=== PATIENT | female | born 1935 | race Caucasian/White ===

== ENCOUNTER 2016-11-12 10:50 | Inpatient (IN) | payer OTHER ==
[~2016-11-12] VITALS: Ht 157.5 cm; Wt 54.3 kg
[2016-11-12] MEDS ORDERED: ONDANSETRON INJ 2 MG/ML 2 ML VIAL IV STA (11:15)
[2016-11-12] MEDS ORDERED: MoRPHine SULFATE 2 MG/ML CARP IV STA ×2 (11:15→13:31)
[2016-11-12 11:30] LABS: BASO % 0.2 %; BASO ABS # 0.02 K/uL (0-0.2); COMPLETE YES; HEMATOCRIT 41.9 % (37-47); IG% 0.2 %; LYMPH % 15.6 %; LYMPH ABS # 1.95 K/uL (1.2-3.4); MEAN CELL VOLUME 92.3 fL (80-100); MEAN CORPUSCULAR HEMOGLOBIN 32.4 pg (25-34); MEAN CORPUSCULAR HGB CONC 35.1 g/dl (32-36); MEAN PLATELET VOLUME 10.6 fL (7.4-10.4); MONO % 7.7 %; NEUT % 76.3 %; PLATELET COUNT 282 K/uL (130-400); RED BLOOD COUNT 4.54 M/uL (4.2-5.4); WHITE BLOOD COUNT 12.54 K/uL (4.8-10.8)
--- NOTE | 2016-11-12 11:30 | EMERGENCY ROOM VISIT NOTE ---
History First contact with patient: 11:00 Chief Complaint: ABDOMINAL PAIN Stated Complaint: CHEST PAINS-RADIATES AROUND TO BACK Nursing Triage Summary: Pt ambulates to room. Reports sudden onset mid sternal chest pain with radiation from right abd into back. Reports did not eat breakfast, felt nausous. History of Present Illness The patient is a 80 year old female who presents to the Emergency Room via private vehicle coming by daughter with complaints of "chest pains, radiates around the back". The patient states that she woke up today around 7 AM and noticed pain on the right posterior thoracic region that radiated around to her right upper quadrant and epigastric region as time passed. She states that the pain as an 8/10 and has been constant and sharp in nature. She notes it is worse with a deep breath. . She does state that she has had minor leg swelling particularly on the left that is been off and on for the past 3 weeks. She states that it is better when she lays down. She further denies any medications for the pain this morning, medicinal allergies, urinary symptoms or recent trauma or falls. She's never had this before and denies nausea, vomiting , diarrhea, history of heart troubles, shortness of breath, history of blood clots. Review of Systems A complete 10-point Review of Systems was discussed with the patient, with pertinent positives and negatives listed in the History of Present Illness. All remaining Review of Systems questions can be considered negative unless otherwise specified. Past Medical/Surgical History Medical Problems: (1) Dyslipidemia (2) HTN (hypertension) (3) Osteoporosis Surgical Problems: (1) History of hysterectomy Family History Heart disease, high blood pressure, cancer, seizures. Social History Smoking Status: Never Smoker Social History: Patient feels safe at home, she denies alcohol and tobacco use. Current/Historical Medications Scheduled Alendronate Sodium (Fosamax), 70 MG PO WK Amlodipine (Norvasc), 5 MG PO DAILY Aspirin (Aspirin Ec), 81 MG PO DAILY Atenolol (Tenormin), 50 MG PO DAILY Atorvastatin (Lipitor), 10 MG PO DAILY Calcium Carbonate-Vitamin D (Calcium + D), 1 TAB PO BID Hydrochlorothiazide (Hctz), 12.5 MG PO DAILY Potassium Ext Rel (Klor-Con), 20 MEQ PO BID Allergies Coded Allergies: No Known Allergies (Unverified , 11/12/16) Physical Exam Vital Signs Date Time Temp Pulse Resp B/P Pulse Ox O2 Delivery O2 Flow Rate FiO2 11/12/16 15:08 76 18 140/60 92 Room Air 11/12/16 13:34 76 18 149/70 92 Room Air 11/12/16 12:43 73 11/12/16 12:28 72 16 120/57 94 11/12/16 11:20 Room Air 11/12/16 10:52 36.7 79 18 155/82 95 Room Air Physical Exam VITAL SIGNS - Vital signs and nursing notes were reviewed. Patient is afebrile , she is hypertensive at 155/82, she is not tachycardic and is saturating well on room air 95%. GENERAL -80-year-old female appearing her stated age who is in no acute distress. Communicates well with provider and answers questions appropriately. SKIN - Without rashes. No petechial rashes. HEAD - NC/AT. EYES - Sclera anicteric. Palpebral conjunctiva pink and moist with no injection noted. EARS - No deformities of external structures noted on gross examination bilaterally. NOSE - Midline and without cyanosis. No epistaxis or purulent drainage noted. MOUTH/OROPHARYNX - Without perioral cyanosis. NECK - Neck with FROM. LUNGS - Chest wall symmetric without accessory muscle use, intercostals retractions, or central cyanosis. Normal vesicular breath sounds CTA B/L. No wheezes, rales, or rhonchi appreciated. CARDIAC - RRR with S1/S2. No murmur, rubs, or gallops appreciated. ABDOMEN - Abdominal contour without pulsations or visible masses. BS normoactive all four quadrants. There is tenderness to palpation in the right upper quadrant. No palpable masses, hepatosplenomegaly, or ascites noted. EXTREMITIES - No clubbing or peripheral cyanosis. No pretibial edema present. +5 /5 strength noted in UE/LE bilaterally. NEUROLOGIC - Cranial nerves II through XII grossly intact. PSYCH - A&Ox3 and cooperates fully with examiner. Pt is very pleasant and interacts well with examiner. Medical Decision & Procedures ER Provider Diagnostic Interpretation: ULTRASOUND RIGHT UPPER QUADRANT ABDOMEN CLINICAL HISTORY: Right upper quadrant abdominal pain. COMPARISON STUDY: No priors. TECHNIQUE: Real-time, grayscale, and color flow sonography of the right upper quadrant of the abdomen was performed. Images are reviewed in the transverse and longitudinal planes. FINDINGS: Liver: The liver is normal in size and echotexture. There is no intrahepatic biliary ductal dilatation. The main portal vein is patent. Gallbladder: The gallbladder is normal in appearance. No gallstones are identified. There is no gallbladder wall thickening or pericholecystic fluid. A sonographic Ortiz's sign is reportedly absent. The common bile duct measures up to 0.5 cm in diameter. Pancreas: Visualized portions of the pancreatic head and body are normal in appearance. The splenic vein is patent. Right kidney: Survey images of the right kidney demonstrate normal size and echotexture. There is no hydronephrosis. Ascites: None. IMPRESSION: No acute sonographic abnormality is identified in the right upper quadrant. No gallstones are seen. Electronically signed by: Cristobal Galo M.D. 11/12/2016 12:13 PM Dictated Date/Time: 11/12/2016 12:12 PM CHEST ONE VIEW PORTABLE HISTORY: RUQ abdominal pain, epigastric pain radiating to back COMPARISON: None. FINDINGS: There is a 1.5 cm calcified granuloma within the left lower lobe. Mild bibasilar interstitial thickening which is likely chronic. The upper lung zones are clear. The heart is mildly enlarged. No pleural effusions. No pneumothorax. IMPRESSION: 1. Mild cardiomegaly. 2. Mild bibasilar interstitial thickening which is likely chronic. Electronically signed by: Virgil Bardales M.D. 11/12/2016 11:46 AM Dictated Date/Time: 11/12/2016 11:44 AM ULTRASOUND LEFT LOWER EXTREMITY VENOUS CLINICAL HISTORY: Left leg swelling. COMPARISON STUDY: No priors. TECHNIQUE: Real-time, grayscale, and color Doppler sonography of the deep veins of the left lower extremity was performed from the inguinal crease to the calf. Compression and augmentation were utilized. FINDINGS: There is no sonographic evidence of deep venous thrombosis identified in the left lower extremity. The common femoral, superficial femoral, and popliteal veins are patent and normally compressible. The greater saphenous vein and the profunda femoris vein at the junction with the common femoral vein are clear. The visualized calf veins are patent. IMPRESSION: There is no sonographic evidence of deep venous thrombosis identified in the left lower extremity. Electronically signed by: Cristobal Galo M.D. 11/12/2016 12:11 PM Dictated Date/Time: 11/12/2016 12:[address] SCAN OF THE ABDOMEN AND PELVIS WITHOUT IV CONTRAST CLINICAL HISTORY: Right upper quadrant abdominal pain. COMPARISON STUDY: Abdominal ultrasound dated 11/12/2016. TECHNIQUE: CT scan of the abdomen and pelvis is performed from the lung bases to the proximal femora. Images are reviewed in the axial, sagittal, and coronal planes. IV contrast was not administered for this examination as per the referring clinician. Note that the examination was performed in suboptimal fashion without oral and IV contrast. Automated dose control exposure was utilized. CT DOSE: 349.61 mGy.cm FINDINGS: Lung bases: The heart is mildly enlarged and without pericardial effusion. The coronary arteries are densely calcified. A small to moderate hiatal hernia is noted. There is a trace right pleural effusion. No airspace consolidation is seen typical for pneumonia. A large calcified granuloma is present at the left lung base. Liver: The unenhanced liver is normal in size, contour, and attenuation. There is no intrahepatic biliary ductal dilatation. Gallbladder: Unremarkable. Spleen: Normal in size and attenuation. There are calcified splenic granulomas. Pancreas: The unenhanced pancreas is moderately atrophic and grossly unremarkable. Adrenal glands: Unremarkable. Kidneys: The unenhanced kidneys demonstrate cortical atrophy and are without hydronephrosis. There are no renal calculi identified. There is no evidence of contour deforming renal mass lesion. Abdominal vasculature: The abdominal aorta is normal in course and caliber noting advanced atherosclerotic calcification. Bowel: The small bowel and colon are normal in course and caliber. There is mild/moderate sigmoid diverticulosis without CT evidence of acute diverticulitis. The appendix is well-visualized and normal. Peritoneum: There is no intraperitoneal free air or abdominal ascites. Lymphadenopathy: None. Pelvic viscera: The bladder is normal as visualized. The uterus is surgically absent. No adnexal lesion is seen. Numerous phleboliths are noted in the pelvis. Skeletal structures: The skeletal structures are osteopenic. There is mild lumbosacral spondylosis. No lytic or blastic lesions are seen. IMPRESSION: 1. Suboptimal examination without oral and IV contrast. 2. There are no acute infectious or inflammatory findings in the abdomen or pelvis. 3. Trace right pleural effusion. 4. Mild to moderate sigmoid diverticulosis without CT evidence of acute diverticulitis. 5. Cardiomegaly and hiatal hernia. 6. Additional changes as above. Electronically signed by: Cristobal Galo M.D. 11/12/2016 1:20 PM Dictated Date/Time: 11/12/2016 1:11 PM CHEST CTA for PULMONARY ARTERIES CT DOSE: 173.23 mGy.cm HISTORY: Atypical chest pain that radiates into back. TECHNIQUE: Multiaxial CT images of the chest were performed following the intravenous administration of contrast to evaluate the pulmonary arteries. Maximal intensity projection images were also obtained. COMPARISON STUDY: Chest 11/12/2016. FINDINGS: The heart is normal in size. Trace right pleural effusion. Moderate hiatus hernia. No evidence for an aortic dissection. No mediastinal or hilar lymphadenopathy. No fractures within the visualized osseous structures. No pneumothorax. Linear scarlike densities at the lung apices. The central airways are patent. A 1.5 cm calcified granuloma within the left lower lobe. Bibasilar linear densities favor subsegmental atelectasis are scarring. 1 cm faint irregular groundglass density within the right upper lobe on image 213. There is a single filling defects seen within a subsegmental branch of the right middle lobe consistent with a pulmonary embolus. There is an associated wedge-shaped groundglass airspace opacity within the lateral segment of the right middle lobe. This is consistent with a pulmonary infarct. IMPRESSION: 1. A subsegmental pulmonary embolus within the right middle lobe with an associated pulmonary infarct. 2. Trace right pleural effusion. 3. Moderate hiatus hernia. 4. A 1 cm faint irregular groundglass density within the right upper lobe. This favors a small focus of inflammatory/infectious change. However, six-month to one year chest CT follow-up is recommended to the less likely possibility of a low-grade pulmonary neoplasm. Electronically signed by: Virgil Bardales M.D. 11/12/2016 2:50 PM Dictated Date/Time: 11/12/2016 2:31 PM Laboratory Results 11/12/16 11:10 Red Blood Count 4.54, Mean Corpuscular Volume 92.3, Mean Corpuscular Hemoglobin 32.4, Mean Corpuscular Hemoglobin Concent 35.1, Mean Platelet Volume 10.6, Neutrophils (%) (Auto) 76.3, Lymphocytes (%) (Auto) 15.6, Monocytes (%) (Auto) 7.7, Eosinophils (%) (Auto) 0.0, Basophils (%) (Auto) 0.2, Neutrophils # (Auto) 9.58, Lymphocytes # (Auto) 1.95, Monocytes # (Auto) 0.97, Eosinophils # (Auto) 0.00, Basophils # (Auto) 0.02 11/12/16 11:10 Test 11/12/16 11:00 11/12/16 11:10 11/12/16 11:26 Urine Color YELLOW Urine Appearance CLEAR (CLEAR) Urine pH 7.5 (4.5-7.5) Urine Specific [place] 1.015 (1.000-1.030) Urine Protein NEG (NEG) Urine Glucose (UA) NEG (NEG) Urine Ketones NEG (NEG) Urine Occult Blood NEG (NEG) Urine Nitrite NEG (NEG) Urine Bilirubin NEG (NEG) Urine Urobilinogen NEG (NEG) Urine Leukocyte Esterase NEG (NEG) White Blood Count 12.54 K/uL (4.8-10.8) Red Blood Count 4.54 M/uL (4.2-5.4) Hemoglobin 14.7 g/dL (12.0-16.0) Hematocrit 41.9 % (37-47) Mean Corpuscular Volume 92.3 fL (80-100) Mean Corpuscular Hemoglobin 32.4 pg (25-34) Mean Corpuscular Hemoglobin Concent 35.1 g/dl (32-36) Platelet Count 282 K/uL (130-400) Mean Platelet Volume 10.6 fL (7.4-10.4) Neutrophils (%) (Auto) 76.3 % Lymphocytes (%) (Auto) 15.6 % Monocytes (%) (Auto) 7.7 % Eosinophils (%) (Auto) 0.0 % Basophils (%) (Auto) 0.2 % Neutrophils # (Auto) 9.58 K/uL (1.4-6.5) Lymphocytes # (Auto) 1.95 K/uL (1.2-3.4) Monocytes # (Auto) 0.97 K/uL (0.11-0.59) Eosinophils # (Auto) 0.00 K/uL (0-0.5) Basophils # (Auto) 0.02 K/uL (0-0.2) RDW Standard Deviation 43.4 fL (36.4-46.3) RDW Coefficient of Variation 12.9 % (11.5-14.5) Immature Granulocyte % (Auto) 0.2 % Immature Granulocyte # (Auto) 0.02 K/uL (0.00-0.02) Prothrombin Time 11.2 SECONDS (9.0-12.0) Prothromb Time International Ratio 1.0 (0.9-1.1) Anion Gap 10.0 mmol/L (3-11) Est Creatinine Clear Calc Drug Dose 46.1 ml/min Estimated GFR () 84.5 Estimated GFR (Non- 72.9 BUN/Creatinine Ratio 12.2 (10-20) Calcium Level 9.8 mg/dl (8.5-10.1) Total Bilirubin 1.2 mg/dl (0.2-1) Aspartate Amino Transf (AST/SGOT) 18 U/L (15-37) Alanine Aminotransferase (ALT/SGPT) 23 U/L (12-78) Alkaline Phosphatase 85 U/L (45-117) Total Creatine Kinase 100 U/L (26-192) Creatine Kinase MB 1.2 ng/ml (0.5-3.6) Creatine Kinase MB Ratio 1.2 (0-3.0) Pro-B-Type Natriuretic Peptide 207 pg/ml (0-1800) Total Protein 7.8 gm/dl (6.4-8.2) Albumin 3.9 gm/dl (3.4-5.0) Globulin 3.9 gm/dl (2.5-4.0) Albumin/Globulin Ratio 1.0 (0.9-2) Amylase Level 53 U/L (25-115) Lipase 96 U/L (73-393) Bedside Troponin I 0.000 ng/ml (0-0.045) Medications Administered Medications (Trade) Dose Ordered Sig/Ravi Route Start Time Stop Time Status Last Admin Dose Admin Morphine Sulfate (MoRPHine SULFATE INJ) 2 mg NOW STAT IV 11/12/16 11:15 11/12/16 11:19 DC 11/12/16 11:27 2 MG Ondansetron HCl (Zofran Inj) 2 mg NOW STAT IV 11/12/16 11:15 11/12/16 11:19 DC 11/12/16 11:27 2 MG Morphine Sulfate (MoRPHine SULFATE INJ) 2 mg NOW STAT IV 11/12/16 13:31 11/12/16 13:32 DC 1/26/17 13:38 2 MG Medical Decision Patient was seen and evaluated as above. After obtaining a thorough history and physical examination IV access was obtained and a CBC, CMP, amylase, lipase , [id number] troponin, BNP, coagulation studies, limited gallbladder ultrasound, stat EKG secondary to subjective and objective examination findings. Monitor was applied a continuous pulse ox was initiated. 2 mg of morphine 2 mg of Zofran were ordered secondary to pain. Chest 1 view, CPK, CK- MB, lower extremity Doppler, urine dipstick were ordered secondary to subjective and objective examination findings. Gallbladder ultrasound was unremarkable. EKG revealed normal sinus rhythm, with left ventricular hypertrophy that was questioned but was at a rate of 79 bpm without any current ectopy or ischemic changes noted. This was paired with a negative troponin. CBC revealed minimal leukocytosis at 12.5, no anemia. Coagulation studies were within normal limits. Point care troponin was 0. No evidence of heart failure. No evidence of pancreatitis. electrolytes are within normal limits no evidence of kidney or liver failure. Urine dip revealed trace blood in the urine with the urinalysis revealed negative. The chest x-ray revealed a 1.5 similar granuloma which was discussed with the patient. CT scan of the abdomen and pelvis was then ordered by my attending who also personally evaluated the patient. This did not reveal any acute findings. On reevaluation the patient appeared to be in more pain which was reproducible with palpation of the right ribs, there was concern for potential underlying pulmonary embolism although the patient saturated okay here in the emergency department and was not tachycardic. CT of the chest was obtained. Pulmonary embolism was identified. My attending ordered specific coagulation studies due to this prior to anticoagulation. I spoke with the admitting team, specifically Tami Bradshaw regarding the patient case who agreed to admit the patient for further evaluation and management as well as anticoagulation. Please refer to further documentation regarding the patient's stay. In evaluation treatment this patient following differential diagnoses were entertained: Cholecystitis, MO, rib fracture, pulmonary embolism, pneumonia, among others. The patient and her daughter were informed upon today's findings. The patient was informed upon the 1.5 cm calcified granuloma, as well as a calcification of the arteries however I was unable to speak to the patient about the recommended follow-up CT scan in 6 months to a year. At 10:50 PM I spoke with Racheal, the emergency department case finisher will be notifying the case finisher supervisor buffing and pasting to alert the patient who is been admitted of this recommendation. Impression Primary Impression: Pulmonary embolism Departure Information Dispostion Admitted as an inpatient Referrals Jean Claude Marks M.D. (PCP) Patient Instructions My [facility] Additional Instructions There is a 1.5 cm calcified granuloma within the left lower lobe. Problem Qualifiers Primary Impression: Pulmonary embolism
[2016-11-12 11:41] LABS: PROTHROMBIN TIME (PATIENT) 11.2 SECONDS (9.0-12.0)
--- NOTE | 2016-11-12 11:47 | DIAGNOSTIC IMAGING REPORT ---
CHEST ONE VIEW PORTABLE HISTORY: RUQ abdominal pain, epigastric pain radiating to back COMPARISON: None. FINDINGS: There is a 1.5 cm calcified granuloma within the left lower lobe. Mild bibasilar interstitial thickening which is likely chronic. The upper lung zones are clear. The heart is mildly enlarged. No pleural effusions. No pneumothorax. IMPRESSION: 1. Mild cardiomegaly. 2. Mild bibasilar interstitial thickening which is likely chronic. Electronically signed by: Virgil Bardales M.D. 11/12/2016 11:46 AM Dictated Date/Time: 11/12/2016 11:44 AM
[2016-11-12 11:49] LABS: BUN/CREATININE RATIO 12.2 (10-20); CALCIUM 9.8 mg/dl (8.5-10.1); CREATININE 0.77 mg/dl (0.60-1.20); POTASSIUM 3.7 mmol/L (3.5-5.1)
--- NOTE | 2016-11-12 12:04 | EMERGENCY ROOM VISIT NOTE ---
ED Visit Note First contact with patient: 11:00 I have seen and examined this patient with Hay Hamlin and generally agree with the treatment plan as discussed. Vital Signs Date Time Temp Pulse Resp B/P Pulse Ox O2 Delivery O2 Flow Rate FiO2 11/12/16 11:20 Room Air 11/12/16 10:52 36.7 79 18 155/82 95 Room Air Laboratory Results 11/12/16 11:10 Red Blood Count 4.54, Mean Corpuscular Volume 92.3, Mean Corpuscular Hemoglobin 32.4, Mean Corpuscular Hemoglobin Concent 35.1, Mean Platelet Volume 10.6, Neutrophils (%) (Auto) 76.3, Lymphocytes (%) (Auto) 15.6, Monocytes (%) (Auto) 7.7, Eosinophils (%) (Auto) 0.0, Basophils (%) (Auto) 0.2, Neutrophils # (Auto) 9.58, Lymphocytes # (Auto) 1.95, Monocytes # (Auto) 0.97, Eosinophils # (Auto) 0.00, Basophils # (Auto) 0.02 11/12/16 11:10 Test 11/12/16 11:10 11/12/16 11:26 11/12/16 11:43 White Blood Count 12.54 K/uL (4.8-10.8) Red Blood Count 4.54 M/uL (4.2-5.4) Hemoglobin 14.7 g/dL (12.0-16.0) Hematocrit 41.9 % (37-47) Mean Corpuscular Volume 92.3 fL (80-100) Mean Corpuscular Hemoglobin 32.4 pg (25-34) Mean Corpuscular Hemoglobin Concent 35.1 g/dl (32-36) Platelet Count 282 K/uL (130-400) Mean Platelet Volume 10.6 fL (7.4-10.4) Neutrophils (%) (Auto) 76.3 % Lymphocytes (%) (Auto) 15.6 % Monocytes (%) (Auto) 7.7 % Eosinophils (%) (Auto) 0.0 % Basophils (%) (Auto) 0.2 % Neutrophils # (Auto) 9.58 K/uL (1.4-6.5) Lymphocytes # (Auto) 1.95 K/uL (1.2-3.4) Monocytes # (Auto) 0.97 K/uL (0.11-0.59) Eosinophils # (Auto) 0.00 K/uL (0-0.5) Basophils # (Auto) 0.02 K/uL (0-0.2) RDW Standard Deviation 43.4 fL (36.4-46.3) RDW Coefficient of Variation 12.9 % (11.5-14.5) Immature Granulocyte % (Auto) 0.2 % Immature Granulocyte # (Auto) 0.02 K/uL (0.00-0.02) Prothrombin Time 11.2 SECONDS (9.0-12.0) Prothromb Time International Ratio 1.0 (0.9-1.1) Activated Partial Thromboplast Time 25.9 SECONDS (21.0-31.0) Partial Thromboplastin Ratio 1.0 Anion Gap 10.0 mmol/L (3-11) Est Creatinine Clear Calc Drug Dose 46.1 ml/min Estimated GFR () 84.5 Estimated GFR (Non- 72.9 BUN/Creatinine Ratio 12.2 (10-20) Calcium Level 9.8 mg/dl (8.5-10.1) Total Bilirubin 1.2 mg/dl (0.2-1) Aspartate Amino Transf (AST/SGOT) 18 U/L (15-37) Alanine Aminotransferase (ALT/SGPT) 23 U/L (12-78) Alkaline Phosphatase 85 U/L (45-117) Pro-B-Type Natriuretic Peptide 207 pg/ml (0-1800) Total Protein 7.8 gm/dl (6.4-8.2) Albumin 3.9 gm/dl (3.4-5.0) Globulin 3.9 gm/dl (2.5-4.0) Albumin/Globulin Ratio 1.0 (0.9-2) Amylase Level 53 U/L (25-115) Lipase 96 U/L (73-393) Bedside Troponin I 0.000 ng/ml (0-0.045) Creatine Kinase MB Ratio (0-3.0) Medications Administered Medications (Trade) Dose Ordered Sig/Ravi Route Start Time Stop Time Status Last Admin Dose Admin Morphine Sulfate (MoRPHine SULFATE INJ) 2 mg NOW STAT IV 11/12/16 11:15 11/12/16 11:19 DC 11/12/16 11:27 2 MG Ondansetron HCl (Zofran Inj) 2 mg NOW STAT IV 11/12/16 11:15 11/12/16 11:19 DC 11/12/16 11:27 2 MG Departure Information Referrals Jean Claude Marks M.D. (PCP) Patient Instructions My [facility] Additional Instructions There is a 1.5 cm calcified granuloma within the left lower lobe.
--- NOTE | 2016-11-12 12:13 | DIAGNOSTIC IMAGING REPORT ---
ULTRASOUND LEFT LOWER EXTREMITY VENOUS CLINICAL HISTORY: Left leg swelling. COMPARISON STUDY: No priors. TECHNIQUE: Real-time, grayscale, and color Doppler sonography of the deep veins of the left lower extremity was performed from the inguinal crease to the calf. Compression and augmentation were utilized. FINDINGS: There is no sonographic evidence of deep venous thrombosis identified in the left lower extremity. The common femoral, superficial femoral, and popliteal veins are patent and normally compressible. The greater saphenous vein and the profunda femoris vein at the junction with the common femoral vein are clear. The visualized calf veins are patent. IMPRESSION: There is no sonographic evidence of deep venous thrombosis identified in the left lower extremity. Electronically signed by: Cristobal Galo M.D. 11/12/2016 12:11 PM Dictated Date/Time: 11/12/2016 12:11 PM
--- NOTE | 2016-11-12 12:14 | DIAGNOSTIC IMAGING REPORT ---
ULTRASOUND RIGHT UPPER QUADRANT ABDOMEN CLINICAL HISTORY: Right upper quadrant abdominal pain. COMPARISON STUDY: No priors. TECHNIQUE: Real-time, grayscale, and color flow sonography of the right upper quadrant of the abdomen was performed. Images are reviewed in the transverse and longitudinal planes. FINDINGS: Liver: The liver is normal in size and echotexture. There is no intrahepatic biliary ductal dilatation. The main portal vein is patent. Gallbladder: The gallbladder is normal in appearance. No gallstones are identified. There is no gallbladder wall thickening or pericholecystic fluid. A sonographic Ortiz's sign is reportedly absent. The common bile duct measures up to 0.5 cm in diameter. Pancreas: Visualized portions of the pancreatic head and body are normal in appearance. The splenic vein is patent. Right kidney: Survey images of the right kidney demonstrate normal size and echotexture. There is no hydronephrosis. Ascites: None. IMPRESSION: No acute sonographic abnormality is identified in the right upper quadrant. No gallstones are seen. Electronically signed by: Cristobal Galo M.D. 11/12/2016 12:13 PM Dictated Date/Time: 11/12/2016 12:12 PM
[2016-11-12 12:27] LABS: CKMB/CK RATIO 1.2 (0-3.0)
[2016-11-12] MEDS ORDERED: ATEN50TA8 PO (12:54)
[2016-11-12] MEDS ORDERED: AMLO-110 PO (12:54)
[2016-11-12] MEDS ORDERED: ALEN70TA4 PO (12:54)
[2016-11-12] MEDS ORDERED: ASPI81TA28 PO (12:54)
[2016-11-12] MEDS ORDERED: POTA20TA16 PO (12:54)
[2016-11-12] MEDS ORDERED: ATOR10TA88 PO (12:54)
[2016-11-12] MEDS ORDERED: HYDR12.55 PO (12:54)
[2016-11-12 13:05] LABS: URINE APPEARANCE CLEAR (CLEAR); URINE BILIRUBIN NEG (NEG); URINE COLOR YELLOW; URINE NITRITE NEG (NEG); URINE PH 7.5 (4.5-7.5); URINE SPECIFIC GRAVITY 1.015 (1.000-1.030); UROBILINOGEN NEG (NEG); ZZUR CULT IF INDIC CLEAN CATCH NO
[2016-11-12 13:12] LABS: MANUAL MICROSCOPIC REQUIRED? NO; REVIEW REQ? NO
--- NOTE | 2016-11-12 13:22 | DIAGNOSTIC IMAGING REPORT ---
CT SCAN OF THE ABDOMEN AND PELVIS WITHOUT IV CONTRAST CLINICAL HISTORY: Right upper quadrant abdominal pain. COMPARISON STUDY: Abdominal ultrasound dated 11/12/2016. TECHNIQUE: CT scan of the abdomen and pelvis is performed from the lung bases to the proximal femora. Images are reviewed in the axial, sagittal, and coronal planes. IV contrast was not administered for this examination as per the referring clinician. Note that the examination was performed in suboptimal fashion without oral and IV contrast. Automated dose control exposure was utilized. CT DOSE: 349.61 mGy.cm FINDINGS: Lung bases: The heart is mildly enlarged and without pericardial effusion. The coronary arteries are densely calcified. A small to moderate hiatal hernia is noted. There is a trace right pleural effusion. No airspace consolidation is seen typical for pneumonia. A large calcified granuloma is present at the left lung base. Liver: The unenhanced liver is normal in size, contour, and attenuation. There is no intrahepatic biliary ductal dilatation. Gallbladder: Unremarkable. Spleen: Normal in size and attenuation. There are calcified splenic granulomas. Pancreas: The unenhanced pancreas is moderately atrophic and grossly unremarkable. Adrenal glands: Unremarkable. Kidneys: The unenhanced kidneys demonstrate cortical atrophy and are without hydronephrosis. There are no renal calculi identified. There is no evidence of contour deforming renal mass lesion. Abdominal vasculature: The abdominal aorta is normal in course and caliber noting advanced atherosclerotic calcification. Bowel: The small bowel and colon are normal in course and caliber. There is mild/moderate sigmoid diverticulosis without CT evidence of acute diverticulitis. The appendix is well-visualized and normal. Peritoneum: There is no intraperitoneal free air or abdominal ascites. Lymphadenopathy: None. Pelvic viscera: The bladder is normal as visualized. The uterus is surgically absent. No adnexal lesion is seen. Numerous phleboliths are noted in the pelvis. Skeletal structures: The skeletal structures are osteopenic. There is mild lumbosacral spondylosis. No lytic or blastic lesions are seen. IMPRESSION: 1. Suboptimal examination without oral and IV contrast. 2. There are no acute infectious or inflammatory findings in the abdomen or pelvis. 3. Trace right pleural effusion. 4. Mild to moderate sigmoid diverticulosis without CT evidence of acute diverticulitis. 5. Cardiomegaly and hiatal hernia. 6. Additional changes as above. Electronically signed by: Cristobal Galo M.D. 11/12/2016 1:20 PM Dictated Date/Time: 11/12/2016 1:11 PM
[2016-11-12] MEDS ORDERED: OPTIRAY 320 IV PRN (14:00)
--- NOTE | 2016-11-12 14:51 | DIAGNOSTIC IMAGING REPORT ---
CHEST CTA for PULMONARY ARTERIES CT DOSE: 173.23 mGy.cm HISTORY: Atypical chest pain that radiates into back. TECHNIQUE: Multiaxial CT images of the chest were performed following the intravenous administration of contrast to evaluate the pulmonary arteries. Maximal intensity projection images were also obtained. COMPARISON STUDY: Chest 11/12/2016. FINDINGS: The heart is normal in size. Trace right pleural effusion. Moderate hiatus hernia. No evidence for an aortic dissection. No mediastinal or hilar lymphadenopathy. No fractures within the visualized osseous structures. No pneumothorax. Linear scarlike densities at the lung apices. The central airways are patent. A 1.5 cm calcified granuloma within the left lower lobe. Bibasilar linear densities favor subsegmental atelectasis are scarring. 1 cm faint irregular groundglass density within the right upper lobe on image 213. There is a single filling defects seen within a subsegmental branch of the right middle lobe consistent with a pulmonary embolus. There is an associated wedge-shaped groundglass airspace opacity within the lateral segment of the right middle lobe. This is consistent with a pulmonary infarct. IMPRESSION: 1. A subsegmental pulmonary embolus within the right middle lobe with an associated pulmonary infarct. 2. Trace right pleural effusion. 3. Moderate hiatus hernia. 4. A 1 cm faint irregular groundglass density within the right upper lobe. This favors a small focus of inflammatory/infectious change. However, six-month to one year chest CT follow-up is recommended to the less likely possibility of a low-grade pulmonary neoplasm. Electronically signed by: Virgil Bardales M.D. 11/12/2016 2:50 PM Dictated Date/Time: 11/12/2016 2:31 PM
[2016-11-12] MEDS ORDERED: ONDANSETRON INJ 2 MG/ML 2 ML VIAL IV PRN (15:45)
[2016-11-12] MEDS ORDERED: ACETAMINOPHEN 325 MG TAB PO PRN (15:45)
[2016-11-12] MEDS ORDERED: CALC600T9 PO (16:03)
[2016-11-12] MEDS ORDERED: HYDR25TA4 PO (16:03)
[2016-11-12] MEDS ORDERED: HEPARIN SOD 5000 UNIT/0.5 ML CARP ONE (16:19)
[2016-11-12] MEDS ORDERED: HEPARIN 25000 UNIT/500 ML D5W ONE (16:19)
--- NOTE | 2016-11-12 16:50 | History and Physical ---
History & Physical Date & Time of Service: Nov 12, 2016 at 16:03 Chief Complaint: Chest Pains-Radiates Around To Back Primary Care Physician: Jean Claude Marks M.D. History of Present Illness Source: patient, clinic records This is an 80 year old female with PMH of HTN, HL, osteoporosis, who presented to the ED for back pain radiating to her chest. History obtained from patient and supplemented from daughter at bedside due to patient's chronic short term memory loss. Patient first noticed the pain when getting out of bed this morning. She called her daughter and was brought to the ER. Pain starts in her back in the right thoracic area with radiation to her RUQ/ right anterior lower ribs. Pain is worse with movement and deep inspiration. Morphine in ER helped temporarily. Upright position also improves the discomfort. Pain is now rated 5/ 10. Starting today patient has mild SOB at times with speaking, fatigue, and low appetite. Daughter denies ACOSTA and states she ambulated into the ER. Patient has left leg swelling which is intermittent for months as per daughter. Denies fever, chills, dizziness, URI symptoms, cough, substernal chest pain, nausea, vomiting, bowel or bladder changes, calf pain. No recent illness, surgery, travel, or immobilization. Patient lives independently and ambulates often throughout the day. Denies personal hx of VTE. Denies history of abnormal bleeding. Past Medical/Surgical History Medical Problems: (1) Dyslipidemia Status: Chronic (2) HTN (hypertension) Status: Chronic (3) Osteoporosis Status: Chronic Surgical Problems: (1) History of hysterectomy Status: Chronic Family History DVT DAUGHTER Daughter had DVT while on control pills. Social History Smoking Status: Never Smoker Alcohol Use: none Drug Use: none Housing status: lives alone Multi-Drug Resistant Organisms History of MDRO: No Allergies Coded Allergies: No Known Allergies (Unverified , 11/12/16) Home Medications Scheduled Alendronate Sodium (Fosamax), 70 MG PO WK Amlodipine (Norvasc), 5 MG PO DAILY Aspirin (Aspirin Ec), 81 MG PO DAILY Atenolol (Tenormin), 50 MG PO DAILY Atorvastatin (Lipitor), 10 MG PO DAILY Calcium Carbonate-Vitamin D (Calcium + D), 1 TAB PO BID Hydrochlorothiazide (Hctz), 12.5 MG PO DAILY Potassium Ext Rel (Klor-Con), 20 MEQ PO BID Review of Systems Ten point review of systems performed with pertinent positives and negatives noted in HPI. Physical Exam Vital Signs Date Time Temp Pulse Resp B/P Pulse Ox O2 Delivery O2 Flow Rate FiO2 11/12/16 15:08 76 18 140/60 92 Room Air 11/12/16 13:34 76 18 149/70 92 Room Air 11/12/16 12:43 73 11/12/16 12:28 72 16 120/57 94 11/12/16 11:20 Room Air 11/12/16 10:52 36.7 79 18 155/82 95 Room Air General Appearance: no apparent distress, + thin, + pertinent finding (alert pleasant elderly female, daughter Mabel at bedside) Head: normocephalic, atraumatic Eyes: normal inspection, sclerae normal ENT: normal ENT inspection, hearing grossly normal, pharynx normal Neck: supple, trachea midline Respiratory/Chest: lungs clear, normal breath sounds, no respiratory distress, no accessory muscle use Cardiovascular: regular rate, rhythm, no murmur Abdomen/GI: normal bowel sounds, non tender, soft Back: + pertinent finding (no thoracic paraspinal muscle tenderness ) Extremities/Musculoskelatal: normal inspection, no calf tenderness, + pertinent finding (trace left pretibial edema, RLE- no edema) Neurologic/Psych: alert, normal mood/affect, oriented x 3, + pertinent finding (chronic short term memory loss. grossly nonfocal. ) Skin: normal color, warm/dry Diagnostics Laboratory Results Results Past 24 Hours Test 11/12/16 11:00 11/12/16 11:10 11/12/16 11:26 11/12/16 15:00 Range/Units Urine Color YELLOW Urine Appearance CLEAR CLEAR Urine pH 7.5 4.5-7.5 Urine Specific [place] 1.015 1.000-1.030 Urine Protein NEG NEG Urine Glucose (UA) NEG NEG Urine Ketones NEG NEG Urine Occult Blood NEG NEG Urine Nitrite NEG NEG Urine Bilirubin NEG NEG Urine Urobilinogen NEG NEG Urine Leukocyte Esterase NEG NEG White Blood Count 12.54 4.8-10.8 K/uL Red Blood Count 4.54 4.2-5.4 M/uL Hemoglobin 14.7 12.0-16.0 g/dL Hematocrit 41.9 37-47 % Mean Corpuscular Volume 92.3 80-100 fL Mean Corpuscular Hemoglobin 32.4 25-34 pg Mean Corpuscular Hemoglobin Concent 35.1 32-36 g/dl Platelet Count 282 130-400 K/uL Mean Platelet Volume 10.6 7.4-10.4 fL Neutrophils (%) (Auto) 76.3 % Lymphocytes (%) (Auto) 15.6 % Monocytes (%) (Auto) 7.7 % Eosinophils (%) (Auto) 0.0 % Basophils (%) (Auto) 0.2 % Neutrophils # (Auto) 9.58 1.4-6.5 K/uL Lymphocytes # (Auto) 1.95 1.2-3.4 K/uL Monocytes # (Auto) 0.97 0.11-0.59 K/uL Eosinophils # (Auto) 0.00 0-0.5 K/uL Basophils # (Auto) 0.02 0-0.2 K/uL RDW Standard Deviation 43.4 36.4-46.3 fL RDW Coefficient of Variation 12.9 11.5-14.5 % Immature Granulocyte % (Auto) 0.2 % Immature Granulocyte # (Auto) 0.02 0.00-0.02 K/uL Prothrombin Time 11.2 9.0-12.0 SECONDS Prothromb Time International Ratio 1.0 0.9-1.1 Activated Partial Thromboplast Time 25.9 21.0-31.0 SECONDS Partial Thromboplastin Ratio 1.0 Sodium Level 137 136-145 mmol/L Potassium Level 3.7 3.5-5.1 mmol/L Chloride Level 102 98-107 mmol/L Carbon Dioxide Level 25 21-32 mmol/L Anion Gap 10.0 3-11 mmol/L Blood Urea Nitrogen 9 7-18 mg/dl Creatinine 0.77 0.60-1.20 mg/dl Est Creatinine Clear Calc Drug Dose 46.1 ml/min Estimated GFR () 84.5 Estimated GFR (Non- 72.9 BUN/Creatinine Ratio 12.2 10-20 Random Glucose 118 70-99 mg/dl Calcium Level 9.8 8.5-10.1 mg/dl Total Bilirubin 1.2 0.2-1 mg/dl Aspartate Amino Transf (AST/SGOT) 18 15-37 U/L Alanine Aminotransferase (ALT/SGPT) 23 12-78 U/L Alkaline Phosphatase 85 45-117 U/L Total Creatine Kinase 100 26-192 U/L Creatine Kinase MB 1.2 0.5-3.6 ng/ml Creatine Kinase MB Ratio 1.2 0-3.0 Pro-B-Type Natriuretic Peptide 207 0-1800 pg/ml Total Protein 7.8 6.4-8.2 gm/dl Albumin 3.9 3.4-5.0 gm/dl Globulin 3.9 2.5-4.0 gm/dl Albumin/Globulin Ratio 1.0 0.9-2 Amylase Level 53 25-115 U/L Lipase 96 73-393 U/L Bedside Troponin I 0.000 0-0.045 ng/ml Diagnostic Radiology ULTRASOUND RIGHT UPPER QUADRANT ABDOMEN IMPRESSION: No acute sonographic abnormality is identified in the right upper quadrant. No gallstones are seen. CHEST ONE VIEW PORTABLE HISTORY: RUQ abdominal pain, epigastric pain radiating to back COMPARISON: None. FINDINGS: There is a 1.5 cm calcified granuloma within the left lower lobe. Mild bibasilar interstitial thickening which is likely chronic. The upper lung zones are clear. The heart is mildly enlarged. No pleural effusions. No pneumothorax. IMPRESSION: 1. Mild cardiomegaly. 2. Mild bibasilar interstitial thickening which is likely chronic. ULTRASOUND LEFT LOWER EXTREMITY VENOUS IMPRESSION: There is no sonographic evidence of deep venous thrombosis identified in the left lower extremity. CT SCAN OF THE ABDOMEN AND PELVIS WITHOUT IV CONTRAST CLINICAL HISTORY: Right upper quadrant abdominal pain. COMPARISON STUDY: Abdominal ultrasound dated 11/12/2016. TECHNIQUE: CT scan of the abdomen and pelvis is performed from the lung bases to the proximal femora. Images are reviewed in the axial, sagittal, and coronal planes. IV contrast was not administered for this examination as per the referring clinician. Note that the examination was performed in suboptimal fashion without oral and IV contrast. Automated dose control exposure was utilized. CT DOSE: 349.61 mGy.cm FINDINGS: Lung bases: The heart is mildly enlarged and without pericardial effusion. The coronary arteries are densely calcified. A small to moderate hiatal hernia is noted. There is a trace right pleural effusion. No airspace consolidation is seen typical for pneumonia. A large calcified granuloma is present at the left lung base. Liver: The unenhanced liver is normal in size, contour, and attenuation. There is no intrahepatic biliary ductal dilatation. Gallbladder: Unremarkable. Spleen: Normal in size and attenuation. There are calcified splenic granulomas. Pancreas: The unenhanced pancreas is moderately atrophic and grossly unremarkable. Adrenal glands: Unremarkable. Kidneys: The unenhanced kidneys demonstrate cortical atrophy and are without hydronephrosis. There are no renal calculi identified. There is no evidence of contour deforming renal mass lesion. Abdominal vasculature: The abdominal aorta is normal in course and caliber noting advanced atherosclerotic calcification. Bowel: The small bowel and colon are normal in course and caliber. There is mild/moderate sigmoid diverticulosis without CT evidence of acute diverticulitis. The appendix is well-visualized and normal. Peritoneum: There is no intraperitoneal free air or abdominal ascites. Lymphadenopathy: None. Pelvic viscera: The bladder is normal as visualized. The uterus is surgically absent. No adnexal lesion is seen. Numerous phleboliths are noted in the pelvis. Skeletal structures: The skeletal structures are osteopenic. There is mild lumbosacral spondylosis. No lytic or blastic lesions are seen. IMPRESSION: 1. Suboptimal examination without oral and IV contrast. 2. There are no acute infectious or inflammatory findings in the abdomen or pelvis. 3. Trace right pleural effusion. 4. Mild to moderate sigmoid diverticulosis without CT evidence of acute diverticulitis. 5. Cardiomegaly and hiatal hernia. 6. Additional changes as above. CHEST CTA for PULMONARY ARTERIES CT DOSE: 173.23 mGy.cm HISTORY: Atypical chest pain that radiates into back. TECHNIQUE: Multiaxial CT images of the chest were performed following the intravenous administration of contrast to evaluate the pulmonary arteries. Maximal intensity projection images were also obtained. COMPARISON STUDY: Chest 11/12/2016. FINDINGS: The heart is normal in size. Trace right pleural effusion. Moderate hiatus hernia. No evidence for an aortic dissection. No mediastinal or hilar lymphadenopathy. No fractures within the visualized osseous structures. No pneumothorax. Linear scarlike densities at the lung apices. The central airways are patent. A 1.5 cm calcified granuloma within the left lower lobe. Bibasilar linear densities favor subsegmental atelectasis are scarring. 1 cm faint irregular groundglass density within the right upper lobe on image 213. There is a single filling defects seen within a subsegmental branch of the right middle lobe consistent with a pulmonary embolus. There is an associated wedge-shaped groundglass airspace opacity within the lateral segment of the right middle lobe. This is consistent with a pulmonary infarct. IMPRESSION: 1. A subsegmental pulmonary embolus within the right middle lobe with an associated pulmonary infarct. 2. Trace right pleural effusion. 3. Moderate hiatus hernia. 4. A 1 cm faint irregular groundglass density within the right upper lobe. This favors a small focus of inflammatory/infectious change. However, six-month to one year chest CT follow-up is recommended to the less likely possibility of a low-grade pulmonary neoplasm. EKG NSR, 75 bpm, LVH with repolarization abnormality Impression Assessment and Plan PULMONARY EMBOLISM Admit to telemetry 1st episode; unprovoked Hemodynamically stable; saturating low to mid 90s on RA CXR- 1.5 cm calcified granuloma LLL, bibasilar interstitial thickening- likely chronic, mild cardiomegaly CTA chest + subsegmental pulmonary embolus within the right middle lobe with an associated pulmonary infarct, trace R pleural effusion, 1 cm faint irregular ground glass density R upper lobe Ultrasound of LLE negative for DVT Hypercoagulable workup ordered by ER Start IV heparin; will need group home anticoagulation Check echo to r/o cardiac strain Supplemental O2 per protocol Percocet PRN for pain control Gentle IVF's NSS at 75 mL/hour x 1 liter LEUKOCYTOSIS WBC 12.5; no apparent infection; UA negative Check repeat CBC in am GROUND GLASS DENSITY CTA chest shows "1 cm faint irregular groundglass density within the right upper lobe. This favors a small focus of inflammatory/infectious change. However , six-month to one year chest CT follow-up is recommended to the less likely possibility of a low-grade pulmonary neoplasm. " F/u as outpatient HYPERTENSION BP is stable Continue amlodipine, atenolol Hold HCTZ to avoid dehydration DYSLIPIDEMIA Continue statin CODE STATUS Full code per my discussion with the patient. States she would not want prolonged life support. DISPOSITION Admit to telemetry Patient's daughter at bedside, Mabel Clark, who is POA, requests updates by phone ([phone]). Lives alone Follows with Dr. Marks for primary care Patient seen in collaboration with Dr. Manriquez. Please see her addendum. Dr Moran will follow the patient in AM ATTENDING NOTE: Pt seen and examined, care co ordinated with Tami Bradshaw PA-C 80 yo F admitted with sudden onset of chest pain sharp radiation to back CT chest shows :subsegmental pulmonary embolus within the right middle lobe with an associated pulmonary infarct, no hx of recent travel or confinement P/E: gen: no sign of discomfort HEENT : sclera non icteric , PERRLA/EOMI HT: regular S1/s2 lungs: CTA abdomen; soft, non tender ext : no rash or deformity , trace edema on left lower ext no calf tenderness Neuro: no focal deficit A/P : Acute PE: no prior hx no hemodynamic compromise hypercoagulable work up sent at ED IV heparin wt based protocol will need to initiate oral anticoagulation form tomorrow ordered for PO Coumadin 5 mg daily follow PT/INT will need over lap anticoagulation for 48 hrs as INR therapeutic FULL CODE VTE Prophylaxis VTE Risk Assessment Done? Y/N: Yes Risk Level: High
[2016-11-12 18:32] VITALS: BP 116/74; PULSE 74; TEMP 36.6; O2SAT 96
[2016-11-12] MEDS ORDERED: SODIUM CHLORIDE 0.9% 1000ML 1,000 ML IV SCH (19:00)
[2016-11-12 19:30] VITALS: BP 134/58; TEMP 37.1; O2SAT 93; Ht 157.5 cm; Wt 54.3 kg
[2016-11-12] MEDS: CALCIUM 600MG + VIT D 400 IU TAB PO SCH (20:23)
[2016-11-12] MEDS: POTASSIUM CHLORIDE 20 MEQ TABCR PO SCH (20:24)
[2016-11-12 23:07] LABS: PARTIAL THROMBOPLASTIN RATIO 2.1
[2016-11-12 23:23] VITALS: BP 124/57; PULSE 79; TEMP 37.3; O2SAT 91
[2016-11-13] VITALS (8 sets, daily range): BP systolic 94–155; BP diastolic 42–64; PULSE 55–77; TEMP 36.4–37.4; O2SAT 92–94
[2016-11-13 06:23] LABS: HEMATOCRIT 38.2 % (37-47); MEAN CELL VOLUME 92.3 fL (80-100); MEAN CORPUSCULAR HEMOGLOBIN 30.9 pg (25-34); MEAN CORPUSCULAR HGB CONC 33.5 g/dl (32-36); MEAN PLATELET VOLUME 10.7 fL (7.4-10.4); PLATELET COUNT 237 K/uL (130-400); RED BLOOD COUNT 4.14 M/uL (4.2-5.4); WHITE BLOOD COUNT 9.63 K/uL (4.8-10.8)
[2016-11-13 06:30] LABS: INR 1.2 (0.9-1.1)
[2016-11-13] MEDS: OXYCODONE/ACETAMINOPHEN 5-325 TAB PO PRN ×2 (06:47→13:51)
[2016-11-13 06:59] LABS: BUN/CREATININE RATIO 17.7 (10-20); CALCIUM 8.8 mg/dl (8.5-10.1); CREATININE 0.63 mg/dl (0.60-1.20); POTASSIUM 3.7 mmol/L (3.5-5.1)
[2016-11-13] MEDS: HEPARIN 25,000 UNIT/500ML D5W 500 ML IV PRN ×2 (07:02→18:55)
[2016-11-13] MEDS: CALCIUM 600MG + VIT D 400 IU TAB PO SCH ×2 (08:20→21:09)
[2016-11-13] MEDS: AMLODIPINE BESYLATE 5 MG TAB PO SCH (08:20)
[2016-11-13] MEDS: POTASSIUM CHLORIDE 20 MEQ TABCR PO SCH ×2 (08:20→21:09)
[2016-11-13] MEDS: ASPIRIN 81 MG ECTAB PO SCH (08:20)
[2016-11-13] MEDS: ATORVASTATIN 10 MG TAB PO SCH (08:21)
[2016-11-13] MEDS ORDERED: HYDROCHLOROTHIAZIDE 25 MG TAB PO SCH (09:00)
--- NOTE | 2016-11-13 12:10 | ECHOCARDIOGRAM REPORT ---
*NOTICE TO RECEIVING [employer] This information is strictly Confidential and protected under [place] law. [place] law prohibits you from making any further disclosure of this information unless further disclosure is expressly permitted by the written consent of the person to whom it pertains or is authorized by law. A general authorization for the release of medical or other information is not sufficient for this purpose. Hospital accepts no responsibility if the information is made available to any other person, INCLUDING THE PATIENT. Interpretation Summary * Name: BRITTNY SANCHEZ Study Date: 11/13/2016 07:51 AM BP: 100/42 mmHg * Patient Location: [facility]\S\N289\S\2 HR: 71 * : 1935 (M/d/yyyy) Gender: Female Height: 62 in * Age: 80 yrs Ethnicity: [place] Weight: 119 lb * Ordering Physician: Tami Bradshaw * Referring Physician: Self, Referred * Performed By: Simin Ervin RDCS * * Reason For Study: PULMONARY EMBOLISM * BSA: 1.5 m2 * History: PULMONARY EMBOLISM * The study was technically adequate. * There is no comparison study available. * -- Conclusions -- * Ejection Fraction = 60-65%. * Left ventricular systolic function is normal. * The right ventricle is normal size. * The right ventricular systolic function is normal as assessed by tricuspid annular plane systolic excursion (TAPSE) (normal >1.5 cm). * The left atrium is mildly dilated. * Grade I diastolic dysfunction, (abnormal relaxation pattern). * Aortic valve sclerosis mild, without significant aortic valvular stenosis. * There is trace mitral regurgitation. * There is mild tricuspid regurgitation. * Doppler findings do not suggest pulmonary hypertension. Procedure Details * A complete two-dimensional transthoracic echocardiogram was performed (2D, M-mode, Doppler and color flow Doppler). Left Ventricle * The left ventricle is normal in size. * There is normal left ventricular wall thickness. * Ejection Fraction = 60-65%. * Left ventricular systolic function is normal. * The left ventricular wall motion is normal. Right Ventricle * The right ventricle is normal size. * The right ventricular systolic function is normal as assessed by tricuspid annular plane systolic excursion (TAPSE) (normal >1.5 cm). Atria * The left atrium is mildly dilated. * Right atrial size is normal. * There is no evidence of atrial septal defect, but resolution does not allow assessment for a patent foramen ovale. Mitral Valve * There is mild to moderate mitral annular calcification. * There is no mitral valve stenosis. * There is trace mitral regurgitation. Tricuspid Valve * The tricuspid valve is normal. * There is no tricuspid stenosis. * There is mild tricuspid regurgitation. * Doppler findings do not suggest pulmonary hypertension. Aortic Valve * The aortic valve is trileaflet. * Aortic valve sclerosis mild, without significant aortic valvular stenosis. * Aortic stenosis is absent. * There is no significant aortic regurgitation. Pulmonic Valve * The pulmonary valve is not well seen, but the Doppler examination is normal without significant regurgitation or stenosis. Great Vessels * The aortic root and proximal ascending aorta are normal sized. Pericardium/Pleural * There is no pericardial effusion. Great Vessels * Normal inferior vena cava diameter and respiratory variation suggests normal central venous pressure. Left Ventricular Diastolic Function * Grade I diastolic dysfunction, (abnormal relaxation pattern). MMode 2D Measurements and Calculations IVSd 0.94 cm IVSs 1.4 cm LVIDd 3.5 cm LVIDs 2.6 cm LVPWd 1.1 cm LVPWs 1.5 cm IVS/LVPW 0.85 FS 27.4 % EDV(Teich) 51.7 ml ESV(Teich) 23.6 ml EF(Teich) 54.3 % EDV(cubed) 43.7 ml ESV(cubed) 16.7 ml EF(cubed) 61.7 % % IVS thick 50.5 % % LVPW thick 40.4 % LV mass(C)d 106.7 grams LV mass(C)dI 69.6 grams/m\S\2 LV mass(C)s 125.3 grams LV mass(C)sI 81.7 grams/m\S\2 SV(Teich) 28.0 ml SI(Teich) 18.3 ml/m\S\2 SV(cubed) 27.0 ml SI(cubed) 17.6 ml/m\S\2 LVAd ap4 26.9 cm\S\2 LVLd ap4 7.4 cm EDV(MOD-sp4) 78.4 ml EDV(sp4-el) 82.7 ml LVAs ap4 15.9 cm\S\2 LVLs ap4 6.3 cm ESV(MOD-sp4) 33.8 ml ESV(sp4-el) 33.9 ml EF(MOD-sp4) 56.9 % EF(sp4-el) 59.0 % LVAd ap2 22.7 cm\S\2 LVLd ap2 7.3 cm EDV(MOD-sp2) 57.7 ml EDV(sp2-el) 59.9 ml LVAs ap2 13.6 cm\S\2 LVLs ap2 6.0 cm ESV(MOD-sp2) 26.4 ml ESV(sp2-el) 26.0 ml EF(MOD-sp2) 54.4 % EF(sp2-el) 56.7 % LVLd %diff -1.80 % EDV(MOD-bp) 66.9 ml LVLs %diff -50 % ESV(MOD-bp) 29.1 ml EF(MOD-bp) 56.5 % SV(MOD-sp4) 44.6 ml SI(MOD-sp4) 29.1 ml/m\S\2 SV(MOD-sp2) 31.4 ml SI(MOD-sp2) 20.5 ml/m\S\2 SV(MOD-bp) 37.8 ml SI(MOD-bp) 24.7 ml/m\S\2 SV(sp4-el) 48.8 ml SI(sp4-el) 31.8 ml/m\S\2 SV(sp2-el) 34.0 ml SI(sp2-el) 22.1 ml/m\S\2 Doppler Measurements and Calculations MV E max april 89.0 cm/sec MV A max april 106.2 cm/sec MV E/A 0.84 MV dec time 0.29 sec Ao V2 max 152.7 cm/sec Ao max PG 9.3 mmHg Ao max PG (full) 3.4 mmHg LV V1 max PG 5.9 mmHg LV V1 max 121.9 cm/sec TR max april 269.1 cm/sec
[2016-11-13] MEDS: WARFARIN SOD 5 MG TAB PO SCH (15:42)
[2016-11-13 16:16] LABS: PARTIAL THROMBOPLASTIN RATIO 1.9
--- NOTE | 2016-11-13 17:12 | Progress Note ---
Internal Med Progress Note Date of Service: Nov 13, 2016. Provider Documentation: SUBJECTIVE: sitting on the zeb comfortably denies sob or chest pain no cough eating ok afebrile OBJECTIVE: Vital Signs-as noted below Exam: General-alert and oriented ENT-normal hearing Neck-no neck masses Lungs-cta b/l no wheezing or crackles Heart-s1 and s2 heard regular rate and rhythm no murmurs Abdomen-soft bowel sounds present non tender no distension Extremities-no erythema Neuro-alert and awake moves extremities Lab data as noted below. ASSESSMENT & PLAN: PULMONARY EMBOLISM 1st episode; unprovoked CXR- 1.5 cm calcified granuloma LLL, bibasilar interstitial thickening- likely chronic, mild cardiomegaly CTA chest + subsegmental pulmonary embolus within the right middle lobe with an associated pulmonary infarct, trace R pleural effusion, 1 cm faint irregular ground glass density R upper lobe Ultrasound of LLE negative for DVT Hypercoagulable workup ordered in ER Started IV heparin and Coumadin echo unremarkable will f/u INR GROUND GLASS DENSITY CTA chest shows "1 cm faint irregular groundglass density within the right upper lobe. This favors a small focus of inflammatory/infectious change. However , six-month to one year chest CT follow-up is recommended to the less likely possibility of a low-grade pulmonary neoplasm. " F/u as outpatient with pcp HYPERTENSION on amlodipine, atenolol Holding HCTZ to avoid dehydration will monitor DYSLIPIDEMIA on statin CODE STATUS Full code . DISPOSITION Monitor in telemetry Patient's daughter at bedside, Mabel Clark, who is POA, requests updates by phone ([phone]). Lives alone Follows with Dr. Marks for primary care To be determined Vital Signs: Date Time Temp Pulse Resp B/P Pulse Ox O2 Delivery O2 Flow Rate FiO2 11/13/16 15:03 36.7 55 16 94/52 92 Room Air 11/13/16 12:00 93 Room Air 11/13/16 11:37 36.8 63 16 144/64 93 Room Air 11/13/16 08:00 93 Room Air 11/13/16 07:27 36.6 71 16 100/42 93 Room Air 11/13/16 04:02 37.4 77 18 106/58 92 Room Air 11/13/16 04:00 Room Air 11/13/16 00:00 Room Air 11/12/16 23:23 37.3 79 20 124/57 91 Room Air 11/12/16 19:30 37.1 16 134/58 93 Room Air 11/12/16 18:32 36.6 74 16 116/74 96 Room Air 11/12/16 17:46 76 18 113/46 92 Room Air Lab Results: Results Past 24 Hours Test 11/12/16 22:32 11/13/16 05:54 11/13/16 15:40 Range/Units Activated Partial Thromboplast Time 54.6 50.6 21.0-31.0 SECONDS Partial Thromboplastin Ratio 2.1 1.9 White Blood Count 9.63 4.8-10.8 K/uL Red Blood Count 4.14 4.2-5.4 M/uL Hemoglobin 12.8 12.0-16.0 g/dL Hematocrit 38.2 37-47 % Mean Corpuscular Volume 92.3 80-100 fL Mean Corpuscular Hemoglobin 30.9 25-34 pg Mean Corpuscular Hemoglobin Concent 33.5 32-36 g/dl RDW Standard Deviation 44.1 36.4-46.3 fL RDW Coefficient of Variation 13.1 11.5-14.5 % Platelet Count 237 130-400 K/uL Mean Platelet Volume 10.7 7.4-10.4 fL Prothrombin Time 13.0 9.0-12.0 SECONDS Prothromb Time International Ratio 1.2 0.9-1.1 Sodium Level 138 136-145 mmol/L Potassium Level 3.7 3.5-5.1 mmol/L Chloride Level 104 98-107 mmol/L Carbon Dioxide Level 24 21-32 mmol/L Anion Gap 10.0 3-11 mmol/L Blood Urea Nitrogen 11 7-18 mg/dl Creatinine 0.63 0.60-1.20 mg/dl Est Creatinine Clear Calc Drug Dose 56.3 ml/min Estimated GFR () 98.2 Estimated GFR (Non- 84.7 BUN/Creatinine Ratio 17.7 10-20 Random Glucose 96 70-99 mg/dl Calcium Level 8.8 8.5-10.1 mg/dl Magnesium Level 2.0 1.8-2.4 mg/dl
[2016-11-14 03:52] VITALS: BP 117/67; PULSE 69; TEMP 36.8; O2SAT 93
[2016-11-14 07:39] VITALS: BP 110/54; PULSE 76; TEMP 37.2; O2SAT 92
[2016-11-14 08:24] LABS: INR 1.1 (0.9-1.1); PARTIAL THROMBOPLASTIN RATIO 1.7; PROTHROMBIN TIME (PATIENT) 12.3 SECONDS (9.0-12.0)
[2016-11-14] MEDS: POTASSIUM CHLORIDE 20 MEQ TABCR PO SCH ×2 (08:33→20:33)
[2016-11-14] MEDS: ASPIRIN 81 MG ECTAB PO SCH (08:34)
[2016-11-14] MEDS: AMLODIPINE BESYLATE 5 MG TAB PO SCH (08:34)
[2016-11-14] MEDS: CALCIUM 600MG + VIT D 400 IU TAB PO SCH ×2 (08:34→20:33)
[2016-11-14] MEDS: ATORVASTATIN 10 MG TAB PO SCH (08:35)
[2016-11-14] MEDS: HEPARIN 25,000 UNIT/500ML D5W 500 ML IV PRN ×2 (09:19→20:32)
[2016-11-14] MEDS ORDERED: HEPARIN IV BOLUS 2,000 UNIT in SYRINGE 0 ML IV ONE (09:30)
[2016-11-14 12:04] VITALS: BP 130/54; PULSE 67; TEMP 37; O2SAT 94
[2016-11-14] MEDS: WARFARIN SOD 5 MG TAB PO SCH (15:24)
[2016-11-14 15:57] VITALS: BP 118/57; PULSE 74; TEMP 36.8; O2SAT 94
--- NOTE | 2016-11-14 16:40 | Progress Note ---
Internal Med Progress Note Date of Service: Nov 14, 2016. Provider Documentation: SUBJECTIVE: sitting on the chair comfortably no chest pain today says was little confused last night but ok now no cough OBJECTIVE: Vital Signs-as noted below Exam: General-alert and oriented ENT-normal hearing Neck-no neck masses Lungs-cta b/l no wheezing or crackles Heart-s1 and s2 heard regular rate and rhythm no murmurs Abdomen-soft bowel sounds present non tender no distension Extremities-no erythema Neuro-alert and awake moves extremities Lab data as noted below. ASSESSMENT & PLAN: PULMONARY EMBOLISM 1st episode; unprovoked CXR- 1.5 cm calcified granuloma LLL, bibasilar interstitial thickening- likely chronic, mild cardiomegaly CTA chest + subsegmental pulmonary embolus within the right middle lobe with an associated pulmonary infarct, trace R pleural effusion, 1 cm faint irregular ground glass density R upper lobe Ultrasound of LLE negative for DVT Hypercoagulable workup ordered in ER Started IV heparin and Coumadin echo unremarkable will f/u INR await inr to be therapeutic GROUND GLASS DENSITY CTA chest shows "1 cm faint irregular groundglass density within the right upper lobe. This favors a small focus of inflammatory/infectious change. However , six-month to one year chest CT follow-up is recommended to the less likely possibility of a low-grade pulmonary neoplasm. " F/u as outpatient with pcp HYPERTENSION on amlodipine, atenolol Holding HCTZ to avoid dehydration- will restart in am,. will monitor DYSLIPIDEMIA on statin CODE STATUS Full code . DISPOSITION Monitor in telemetry Patient's daughter at bedside, Mabel Clark, who is POA, requests updates by phone ([phone]). Lives alone Follows with Dr. Marks for primary care To be determined Vital Signs: Date Time Temp Pulse Resp B/P Pulse Ox O2 Delivery O2 Flow Rate FiO2 11/14/16 16:00 Room Air 11/14/16 15:57 36.8 74 16 118/57 94 Room Air 11/14/16 12:04 37.0 67 18 130/54 94 Room Air 11/14/16 12:00 Room Air 11/14/16 08:00 Room Air 11/14/16 07:39 37.2 76 16 110/54 92 Room Air 11/14/16 04:00 Room Air 11/14/16 03:52 36.8 69 16 117/67 93 Room Air 11/14/16 00:00 Room Air 11/13/16 23:56 36.8 73 18 134/56 94 Room Air 11/13/16 20:00 Room Air 11/13/16 19:40 36.4 66 18 155/62 94 Room Air Lab Results: Results Past 24 Hours Test 11/14/16 07:20 11/14/16 15:10 Range/Units Prothrombin Time 12.3 9.0-12.0 SECONDS Prothromb Time International Ratio 1.1 0.9-1.1 Activated Partial Thromboplast Time 43.6 51.0 21.0-31.0 SECONDS Partial Thromboplastin Ratio 1.7 2.0
[2016-11-14 19:26] VITALS: BP 105/55; PULSE 73; TEMP 36.9; O2SAT 92
[2016-11-14 23:38] VITALS: BP 121/75; PULSE 86; TEMP 36.8; O2SAT 91
[2016-11-15] VITALS (8 sets, daily range): BP systolic 117–129; BP diastolic 51–70; PULSE 60–70; TEMP 36.5–36.8; O2SAT 93–95
[2016-11-15 07:49] LABS: INR 1.5 (0.9-1.1); PARTIAL THROMBOPLASTIN RATIO 2.2; PROTHROMBIN TIME (PATIENT) 16.5 SECONDS (9.0-12.0)
[2016-11-15] MEDS: ATORVASTATIN 10 MG TAB PO SCH (08:51)
[2016-11-15] MEDS: AMLODIPINE BESYLATE 5 MG TAB PO SCH (08:51)
[2016-11-15] MEDS: ASPIRIN 81 MG ECTAB PO SCH (08:51)
[2016-11-15] MEDS: POTASSIUM CHLORIDE 20 MEQ TABCR PO SCH ×2 (08:52→21:34)
[2016-11-15] MEDS: CALCIUM 600MG + VIT D 400 IU TAB PO SCH ×2 (08:52→21:34)
[2016-11-15] MEDS: WARFARIN SOD 5 MG TAB PO SCH (16:16)
--- NOTE | 2016-11-15 16:56 | Progress Note ---
Internal Med Progress Note Date of Service: Nov 15, 2016. Provider Documentation: SUBJECTIVE: sitting on the chair and eating lunch denies chest pain or sob afebrile want to go home in am OBJECTIVE: Vital Signs-as noted below Exam: General-alert and oriented ENT-normal hearing Neck-no neck masses Lungs-cta b/l no wheezing or crackles Heart-s1 and s2 heard regular rate and rhythm no murmurs Abdomen-soft bowel sounds present non tender no distension Extremities-no erythema Neuro-alert and awake moves extremities Lab data as noted below. ASSESSMENT & PLAN: PULMONARY EMBOLISM 1st episode; unprovoked CXR- 1.5 cm calcified granuloma LLL, bibasilar interstitial thickening- likely chronic, mild cardiomegaly CTA chest + subsegmental pulmonary embolus within the right middle lobe with an associated pulmonary infarct, trace R pleural effusion, 1 cm faint irregular ground glass density R upper lobe Ultrasound of LLE negative for DVT Hypercoagulable workup ordered in ER Started IV heparin and Coumadin echo unremarkable will f/u INR inr 1.5 today stable GROUND GLASS DENSITY CTA chest shows "1 cm faint irregular groundglass density within the right upper lobe. This favors a small focus of inflammatory/infectious change. However , six-month to one year chest CT follow-up is recommended to the less likely possibility of a low-grade pulmonary neoplasm. " F/u as outpatient with pcp HYPERTENSION on amlodipine, atenolol Holding HCTZ to avoid dehydration- will restart in am,. will monitor DYSLIPIDEMIA on statin CODE STATUS Full code . DISPOSITION Monitor in telemetry Patient's daughter at bedside, Mabel Clark, who is POA, requests updates by phone ([phone]). Lives alone Follows with Dr. Marks for primary care Possible d/c in am Vital Signs: Date Time Temp Pulse Resp B/P Pulse Ox O2 Delivery O2 Flow Rate FiO2 11/15/16 16:09 36.7 61 16 117/62 95 Room Air 11/15/16 12:00 Room Air 11/15/16 11:33 36.7 61 18 117/51 95 Room Air 11/15/16 08:00 Room Air 11/15/16 07:32 36.6 61 16 117/63 93 Room Air 11/15/16 04:54 Room Air 11/15/16 03:39 36.5 60 20 129/70 94 Room Air 11/15/16 00:02 Room Air 11/14/16 23:38 36.8 86 16 121/75 91 Nasal Cannula 4.0 11/14/16 19:45 Room Air 11/14/16 19:26 36.9 73 16 105/55 92 Room Air Lab Results: Results Past 24 Hours Test 11/15/16 07:01 Range/Units Prothrombin Time 16.5 9.0-12.0 SECONDS Prothromb Time International Ratio 1.5 0.9-1.1 Activated Partial Thromboplast Time 57.9 21.0-31.0 SECONDS Partial Thromboplastin Ratio 2.2
[2016-11-15] MEDS: HEPARIN 25,000 UNIT/500ML D5W 500 ML IV PRN ×2 (18:52→23:14)
[2016-11-16] VITALS (8 sets, daily range): BP systolic 109–131; BP diastolic 54–74; PULSE 65–98; TEMP 36.3–36.8; O2SAT 94–97
[2016-11-16 06:24] LABS: PARTIAL THROMBOPLASTIN RATIO 2.5; PROTHROMBIN TIME (PATIENT) 33.3 SECONDS (9.0-12.0)
[2016-11-16] MEDS: POTASSIUM CHLORIDE 20 MEQ TABCR PO SCH ×2 (08:21→20:28)
[2016-11-16] MEDS: ATORVASTATIN 10 MG TAB PO SCH (08:21)
[2016-11-16] MEDS: CALCIUM 600MG + VIT D 400 IU TAB PO SCH ×2 (08:21→20:28)
[2016-11-16] MEDS: ASPIRIN 81 MG ECTAB PO SCH (08:21)
[2016-11-16] MEDS: AMLODIPINE BESYLATE 5 MG TAB PO SCH (08:22)
[2016-11-16] MEDS ORDERED: DOXYCYCLINE HYCLATE 100 MG CAP PO ONE (11:15)
--- NOTE | 2016-11-16 14:59 | Progress Note ---
Internal Med Progress Note Date of Service: Nov 16, 2016. Provider Documentation: SUBJECTIVE: resting comfortably little upset that she has to stay one more day no chest pain or sob afebrile OBJECTIVE: Vital Signs-as noted below Exam: General-alert and oriented ENT-normal hearing Neck-no neck masses Lungs-cta b/l no wheezing or crackles Heart-s1 and s2 heard regular rate and rhythm no murmurs Abdomen-soft bowel sounds present non tender no distension Extremities-no erythema Neuro-alert and awake moves extremities Lab data as noted below. ASSESSMENT & PLAN: PULMONARY EMBOLISM 1st episode; unprovoked CXR- 1.5 cm calcified granuloma LLL, bibasilar interstitial thickening- likely chronic, mild cardiomegaly CTA chest + subsegmental pulmonary embolus within the right middle lobe with an associated pulmonary infarct, trace R pleural effusion, 1 cm faint irregular ground glass density R upper lobe Ultrasound of LLE negative for DVT Hypercoagulable workup ordered in ER Started IV heparin and Coumadin echo unremarkable will f/u INR inr jumped to 3.0 today will hold Coumadin tonight and monitor inr in am GROUND GLASS DENSITY CTA chest shows "1 cm faint irregular groundglass density within the right upper lobe. This favors a small focus of inflammatory/infectious change. However , six-month to one year chest CT follow-up is recommended to the less likely possibility of a low-grade pulmonary neoplasm. " F/u as outpatient with pcp HYPERTENSION on amlodipine, atenolol Holding HCTZ to avoid dehydration- will restart in am,. will monitor DYSLIPIDEMIA on statin CODE STATUS Full code . DISPOSITION Monitor in telemetry Patient's daughter Mabel Clark, who is POA, requests updates by phone ([phone]). Lives alone Follows with Dr. Marks for primary care Possible d/c in am Vital Signs: Date Time Temp Pulse Resp B/P Pulse Ox O2 Delivery O2 Flow Rate FiO2 11/16/16 12:30 Room Air 11/16/16 12:06 36.8 67 16 125/71 94 Room Air 11/16/16 08:15 36.8 71 16 127/74 94 Room Air 11/16/16 08:10 Room Air 11/16/16 04:29 36.7 65 16 109/65 94 Room Air 11/16/16 04:00 95 Room Air 11/16/16 00:00 95 Room Air 11/15/16 23:42 36.8 70 16 117/57 94 Room Air 11/15/16 20:25 95 Room Air 11/15/16 19:23 36.6 63 18 126/66 95 Room Air 11/15/16 16:15 95 Room Air 11/15/16 16:09 36.7 61 16 117/62 95 Room Air Lab Results: Results Past 24 Hours Test 11/16/16 05:16 Range/Units Prothrombin Time 33.3 9.0-12.0 SECONDS Prothromb Time International Ratio 3.0 0.9-1.1 Activated Partial Thromboplast Time 64.7 21.0-31.0 SECONDS Partial Thromboplastin Ratio 2.5
[2016-11-16] MEDS: HEPARIN 25,000 UNIT/500ML D5W 500 ML IV PRN ×3 (15:01→23:06)
[2016-11-16] MEDS: DOXYCYCLINE HYCLATE 100 MG CAP PO SCH (20:29)
[2016-11-17] VITALS: O2SAT 95
[2016-11-17 03:45] VITALS: BP 109/62; PULSE 65; TEMP 36.5; O2SAT 97
[2016-11-17 04:00] VITALS: O2SAT 95
[2016-11-17] MEDS: HEPARIN 25,000 UNIT/500ML D5W 500 ML IV PRN ×2 (06:46→07:22)
[2016-11-17 06:53] LABS: INR 2.9 (0.9-1.1); PROTHROMBIN TIME (PATIENT) 32.3 SECONDS (9.0-12.0)
[2016-11-17 07:51] VITALS: BP 120/66; PULSE 59; TEMP 36.6; O2SAT 96
[2016-11-17] MEDS: CALCIUM 600MG + VIT D 400 IU TAB PO SCH (08:14)
[2016-11-17] MEDS: ATORVASTATIN 10 MG TAB PO SCH (08:14)
[2016-11-17] MEDS: ASPIRIN 81 MG ECTAB PO SCH (08:14)
[2016-11-17] MEDS: DOXYCYCLINE HYCLATE 100 MG CAP PO SCH (08:14)
[2016-11-17] MEDS: POTASSIUM CHLORIDE 20 MEQ TABCR PO SCH (08:14)
[2016-11-17] MEDS: AMLODIPINE BESYLATE 5 MG TAB PO SCH (08:14)
[2016-11-17 12:33] VITALS: BP 133/69; PULSE 62; TEMP 36.9; O2SAT 95
[2016-11-17] MEDS ORDERED: WARF3TAB PO (12:33)
--- NOTE | 2016-11-17 12:36 | Discharge Instructions ---
Discharge Instructions Admission Reason for Admission: Pulmonary Embolism Discharge Discharge Diagnosis / Problem: PE Discharge Goals Goal(s): Decrease discomfort, Improve function Activity Recommendations Activity Limitations: resume your previous activity FOLLOWUP WITH FAMILY DOCTOR Jean Claude Mejia ON Nov AT 9:30AM FOLLOWUP WITH COUMADIN CLINIC FOR COUMADIN DOSING. COUMADIN CLINIC NOTIFIED. TO TAKE COUMADIN 3MG PO ONCE DAILY IN EVENING UNTIL FURTHER ORDERS FROM COUMADIN CLINIC. LAB: PT/INR IN 2 DAYS AND FOLLOW RESULTS WITH COUMADIN CLINIC. . Current Hospital Diet Patient's current hospital diet: AHA Diet (Heart Healthy) Discharge Diet Recommended Diet: AHA Diet (Heart Healthy) Pending Studies Studies pending at discharge: no Medical Emergencies . Who to Call and When: Medical Emergencies: If at any time you feel your situation is an emergency, please call 911 immediately. . Non-Emergent Contact Non-Emergency issues call your: Primary Care Provider . . "Provider Documentation" section prepared by Da Barfield. VTE Core Measure Inpt VTE Proph given/why not?: Warfarin (Coumadin), Other Anticoagulation (IV HEPARIN AND COUMADIN)
[2016-11-17 13:18] VITALS: BP 133/69; PULSE 62; TEMP 36.9; O2SAT 95
--- NOTE | 2016-11-17 17:45 | Progress Note ---
Internal Med Progress Note Date of Service: Nov 17, 2016. Provider Documentation: SUBJECTIVE: resting comfortably ambulated fine no sob or chest pain want to go home OBJECTIVE: Vital Signs-as noted below Exam: General-alert and oriented ENT-normal hearing Neck-no neck masses Lungs-cta b/l no wheezing or crackles Heart-s1 and s2 heard regular rate and rhythm no murmurs Abdomen-soft bowel sounds present non tender no distension Extremities-no erythema Neuro-alert and awake moves extremities Lab data as noted below. ASSESSMENT & PLAN: PULMONARY EMBOLISM 1st episode; unprovoked CXR- 1.5 cm calcified granuloma LLL, bibasilar interstitial thickening- likely chronic, mild cardiomegaly CTA chest + subsegmental pulmonary embolus within the right middle lobe with an associated pulmonary infarct, trace R pleural effusion, 1 cm faint irregular ground glass density R upper lobe Ultrasound of LLE negative for DVT Hypercoagulable workup ordered in ER Started IV heparin and Coumadin 5mg daily echo unremarkable will f/u INR inr jumped to 3.0 from 1.5 held Coumadin and monitored inr in am inr today 2.9 discharged on Coumadin 3mg daily and followup with Coumadin clinic. Coumadin clinic notified. GROUND GLASS DENSITY CTA chest shows "1 cm faint irregular groundglass density within the right upper lobe. This favors a small focus of inflammatory/infectious change. However , six-month to one year chest CT follow-up is recommended to the less likely possibility of a low-grade pulmonary neoplasm. " F/u as outpatient with pcp.Will notify PCP HYPERTENSION on amlodipine, atenolol Holding HCTZ to avoid dehydration- will restart in am,. d/con home meds. DYSLIPIDEMIA on statin Discharged home Vital Signs: Date Time Temp Pulse Resp B/P Pulse Ox O2 Delivery O2 Flow Rate FiO2 11/17/16 13:18 36.9 62 18 95 Room Air 11/17/16 12:33 36.9 62 18 133/69 95 Room Air 11/17/16 12:00 Room Air 11/17/16 08:00 Room Air 11/17/16 07:51 36.6 59 16 120/66 96 Room Air 11/17/16 04:00 95 Room Air 11/17/16 03:45 36.5 65 18 109/62 97 Room Air 11/17/16 00:00 95 Room Air 11/16/16 23:51 36.8 72 20 131/74 95 Room Air 11/16/16 20:00 Room Air 11/16/16 19:02 36.3 79 16 119/69 97 Room Air Lab Results: Results Past 24 Hours Test 11/17/16 06:05 Range/Units Prothrombin Time 32.3 9.0-12.0 SECONDS Prothromb Time International Ratio 2.9 0.9-1.1 Activated Partial Thromboplast Time 78.7 21.0-31.0 SECONDS Partial Thromboplastin Ratio 3.0
--- NOTE | 2016-11-17 17:58 | Discharge Summary ---
Discharge Summary Admission Date: Nov 12, 2016 at 15:32 Discharge Date: Nov 17, 2016 Discharge Disposition: Home Principal Diagnosis: ACUTE PE Secondary Diagnoses/Problems: (1) Dyslipidemia Status: Chronic (2) HTN (hypertension) Status: Chronic (3) Osteoporosis Status: Chronic Procedures: GALL BLADDER US: No acute sonographic abnormality is identified in the right upper quadrant. No gallstones are seen. CXR: 1. Mild cardiomegaly. 2. Mild bibasilar interstitial thickening which is likely chronic. LOWER EXTREMITY US: There is no sonographic evidence of deep venous thrombosis identified in the left lower extremity. CT ABD/PELVIS: 1. Suboptimal examination without oral and IV contrast. 2. There are no acute infectious or inflammatory findings in the abdomen or pelvis. 3. Trace right pleural effusion. 4. Mild to moderate sigmoid diverticulosis without CT evidence of acute diverticulitis. 5. Cardiomegaly and hiatal hernia. 6. Additional changes as above. CTA CHEST: 1. A subsegmental pulmonary embolus within the right middle lobe with an associated pulmonary infarct. 2. Trace right pleural effusion. 3. Moderate hiatus hernia. 4. A 1 cm faint irregular groundglass density within the right upper lobe. This favors a small focus of inflammatory/infectious change. However, six-month to one year chest CT follow-up is recommended to the less likely possibility of a low-grade pulmonary neoplasm. ECHO: * Ejection Fraction = 60-65%. * Left ventricular systolic function is normal. * The right ventricle is normal size. * The right ventricular systolic function is normal as assessed by tricuspid annular plane systolic excursion (TAPSE) (normal >1.5 cm). * The left atrium is mildly dilated. * Grade I diastolic dysfunction, (abnormal relaxation pattern). * Aortic valve sclerosis mild, without significant aortic valvular stenosis. * There is trace mitral regurgitation. * There is mild tricuspid regurgitation. Doppler findings do not suggest pulmonary hypertension Medication Reconciliation New Medications: Warfarin Sodium (Coumadin) 3 Mg Tab 1 TAB PO DAILY for 90 Days, #90 TAB 3 Refills Continued Medications: Alendronate Sodium (Fosamax) 70 Mg Tab 70 MG PO WK, TAB Amlodipine (Norvasc) 5 Mg Tab 5 MG PO DAILY, TAB Aspirin (Aspirin Ec) 81 Mg Tab 81 MG PO DAILY Atenolol (Tenormin) 50 Mg Tab 50 MG PO DAILY, TAB Atorvastatin (Lipitor) 10 Mg Tab 10 MG PO DAILY, TAB Calcium Carbonate-Vitamin D (Calcium + D) 1 Tab Tab 1 TAB PO BID Hydrochlorothiazide (Hctz) 25 Mg Tab 12.5 MG PO DAILY, TAB Potassium Ext Rel (Klor-Con) 20 Meq Tabcr 20 MEQ PO BID, TAB Admission Information HPI (per Admitting provider): This is an 80 year old female with PMH of HTN, HL, osteoporosis, who presented to the ED for back pain radiating to her chest. History obtained from patient and supplemented from daughter at bedside due to patient's chronic short term memory loss. Patient first noticed the pain when getting out of bed this morning. She called her daughter and was brought to the ER. Pain starts in her back in the right thoracic area with radiation to her RUQ/ right anterior lower ribs. Pain is worse with movement and deep inspiration. Morphine in ER helped temporarily. Upright position also improves the discomfort. Pain is now rated 5/ 10. Starting today patient has mild SOB at times with speaking, fatigue, and low appetite. Daughter denies ACOSTA and states she ambulated into the ER. Patient has left leg swelling which is intermittent for months as per daughter. Denies fever, chills, dizziness, URI symptoms, cough, substernal chest pain, nausea, vomiting, bowel or bladder changes, calf pain. No recent illness, surgery, travel, or immobilization. Patient lives independently and ambulates often throughout the day. Denies personal hx of VTE. Denies history of abnormal bleeding. Physical Exam (per Admitting): General Appearance: no apparent distress, + thin, + pertinent finding ( alert pleasant elderly female, daughter Mabel at bedside) Head: normocephalic, atraumatic Eyes: normal inspection, sclerae normal ENT: normal ENT inspection, hearing grossly normal, pharynx normal Neck: supple, trachea midline Respiratory/Chest: lungs clear, normal breath sounds, no respiratory distress, no accessory muscle use Cardiovascular: regular rate, rhythm, no murmur Abdomen/GI: normal bowel sounds, non tender, soft Back: + pertinent finding (no thoracic paraspinal muscle tenderness ) Extremities/Musculoskelatal: normal inspection, no calf tenderness, + pertinent finding (trace left pretibial edema, RLE- no edema) Neurologic/Psych: alert, normal mood/affect, oriented x 3, + pertinent finding (chronic short term memory loss. grossly nonfocal. ) Skin: normal color, warm/dry Physical Exam (per Admitting): General Appearance: no apparent distress, + thin, + pertinent finding (alert pleasant elderly female, daughter Mabel at bedside) Head: normocephalic, atraumatic Eyes: normal inspection, sclerae normal ENT: normal ENT inspection, hearing grossly normal, pharynx normal Neck: supple, trachea midline Respiratory/Chest: lungs clear, normal breath sounds, no respiratory distress, no accessory muscle use Cardiovascular: regular rate, rhythm, no murmur Abdomen/GI: normal bowel sounds, non tender, soft Back: + pertinent finding (no thoracic paraspinal muscle tenderness ) Extremities/Musculoskelatal: normal inspection, no calf tenderness, + pertinent finding (trace left pretibial edema, RLE- no edema) Neurologic/Psych: alert, normal mood/affect, oriented x 3, + pertinent finding (chronic short term memory loss. grossly nonfocal. ) Skin: normal color, warm/dry Hospital Course PULMONARY EMBOLISM 1st episode; unprovoked CXR- 1.5 cm calcified granuloma LLL, bibasilar interstitial thickening- likely chronic, mild cardiomegaly CTA chest + subsegmental pulmonary embolus within the right middle lobe with an associated pulmonary infarct, trace R pleural effusion, 1 cm faint irregular ground glass density R upper lobe Ultrasound of LLE negative for DVT Hypercoagulable workup ordered in ER Started IV heparin and Coumadin 5mg daily echo unremarkable will f/u INR inr jumped to 3.0 from 1.5 held Coumadin and monitored inr in am inr today 2.9 discharged on Coumadin 3mg daily and followup with Coumadin clinic. Coumadin clinic notified. GROUND GLASS DENSITY CTA chest shows "1 cm faint irregular groundglass density within the right upper lobe. This favors a small focus of inflammatory/infectious change. However , six-month to one year chest CT follow-up is recommended to the less likely possibility of a low-grade pulmonary neoplasm. " F/u as outpatient with pcp.Will notify PCP HYPERTENSION on amlodipine, atenolol Holding HCTZ to avoid dehydration- will restart in am,. d/con home meds. DYSLIPIDEMIA on statin Discharged home Total time spent on discharge = 35MINUTES This includes examination of the patient, discharge planning, medication reconciliation, and communication with other providers. Discharge Instructions Please take this sheet to every appointment for the next month Discharge Instructions Admission Reason for Admission: Pulmonary Embolism Discharge Discharge Diagnosis / Problem: PE Discharge Goals Goal(s): Decrease discomfort, Improve function Activity Recommendations Activity Limitations: resume your previous activity FOLLOWUP WITH FAMILY DOCTOR Jean Claude Mejia ON Nov AT 9:30AM FOLLOWUP WITH COUMADIN CLINIC FOR COUMADIN DOSING. COUMADIN CLINIC NOTIFIED. TO TAKE COUMADIN 3MG PO ONCE DAILY IN EVENING UNTIL FURTHER ORDERS FROM COUMADIN CLINIC. LAB: PT/INR IN 2 DAYS AND FOLLOW RESULTS WITH COUMADIN CLINIC. . Current Hospital Diet Patient's current hospital diet: AHA Diet (Heart Healthy) Discharge Diet Recommended Diet: AHA Diet (Heart Healthy) Pending Studies Studies pending at discharge: no Medical Emergencies . Who to Call and When: Medical Emergencies: If at any time you feel your situation is an emergency, please call 911 immediately. . Non-Emergent Contact Non-Emergency issues call your: Primary Care Provider . . "Provider Documentation" section prepared by Da Barfield. VTE Core Measure Inpt VTE Proph given/why not?: Warfarin (Coumadin), Other Anticoagulation (IV HEPARIN AND COUMADIN)
[2016-11-18 15:23] LABS: ANTITHROMBINIII ACTIVITY** 125 % activity (80-120); B2 GLYCOPROTEIN IGA <9 SAU (<=20); B2 GLYCOPROTEIN IGG <9 SGU (<=20); B2 GLYCOPROTEIN IGM <9 SMU (<=20); LUPUS ANTICOAGULANT** TC36573X Negative (Negative); PROTEIN C ACTIVITY** TC 1777X >200 % (70-180); PROTEIN S ACT(FUNCT)**1779X 110 % (60-140)
[2016-11-19] MEDS ORDERED: ALENDRONATE SODIUM 70 MG TAB PO SCH (07:00)
== END 2016-11-17 15:30 | disposition home health service (06) | DRG 176 ==
LOC: ENRESERVDT → ENRESERVTM → C.EDB 10:52 → C.MED 15:32
PROVIDERS: ADMIT Hospitalist; ATTEND Internal Medicine
DX: I26.99 Other pulmonary embolism without acute cor pulmonale (principal); J90 Pleural effusion, not elsewhere classified; E78.5 Hyperlipidemia, unspecified; I10 Essential (primary) hypertension; M81.0 Age-related osteoporosis without current pathological fracture; D72.829 Elevated white blood cell count, unspecified; J84.10 Pulmonary fibrosis, unspecified; R91.8 Other nonspecific abnormal finding of lung field; H91.90 Unspecified hearing loss, unspecified ear; Z79.82 Long term (current) use of aspirin; Z79.899 Other long term (current) drug therapy; Z79.83 Long term (current) use of bisphosphonates